=== PATIENT | male | born 1995 | race Caucasian/White ===

== ENCOUNTER → 2018-12-19 13:56 | Outpatient (CLI) | payer OTHER, SELFPAY ==
--- NOTE | 2018-12-19 | DI.MRI.S_ITS ---
PROCEDURE: MR CERVICAL SPINE WO CON INDICATIONS: Cervicalgia TECHNIQUE: Noncontrast sagittal T1 spin echo and T2 fast spin echo, sagittal STIR, foraminal oblique sagittal T2 fast spin echo, and axial gradient echo or T2 fast spin echo through the cervical spine. COMPARISON: None. FINDINGS: Image quality: Excellent. Alignment and Curvature: There is normal bony alignment. Bone Marrow: Marrow demonstrates normal overall signal. Spinal Cord: Visualized spinal cord has normal size and signal. No cerebellar tonsillar herniation. Paraspinous Soft Tissues: No paravertebral masses. Prevertebral soft tissues are normal in thickness. C2-C3: Normal appearance. C3-C4: Normal appearance. C4-C5: The disc height and disc signal are well-preserved. There is mild right-sided and no significant left-sided neural foraminal narrowing seen. The central canal is widely patent. C5-C6: The disc height and disc signal are relatively well-preserved. There is mild left-sided and minimal right-sided neural foraminal narrowing seen. The central canal is widely patent. C6-C7: The disc height is well-preserved. A mild degree of generalized disc osteophyte complex is seen. Minimal to mild bilateral neural foraminal narrowing is seen. The central canal is widely patent. C7-T1: Normal appearance. IMPRESSION: Mild lower cervical spine degenerative changes are seen. Dictated by: Drake Caballero M.D. on 12/19/2018 at 15:48 Approved by: Drake Caballero M.D. on 12/19/2018 at 15:50
== END ==
PROVIDERS: PCP Family Medicine; Visit Provider Physical Medicine & Rehabilitation Pain Medicine
DX: M54.2 Cervicalgia (principal); M47.812 Spondylosis without myelopathy or radiculopathy, cervical region
CPT/HCPCS: 72141

== ENCOUNTER 2021-01-30 21:03 | Emergency (ER) | payer OTHER, SELFPAY ==
[2021-01-30 21:22] VITALS: BP 134/74; PULSE 87; RESP 15; TEMP 37.2; O2SAT 98; BMI 29.5
--- NOTE | 2021-01-30 23:41 | PC.NURSE ---
2200: Pt out of room, instructed to put on mask. Asking to have a suture kit provided to him so he can take it home and suture himself. Advised we will not be able to provide that. Asking multiple nurses if he can buy a suture kit from us. Dr Lim made aware and pt made aware of the wait. bleeding controlled and wrapped in coban at this time. Tetanus is not up to date but pt refusing updated vaccination.
[2021-01-31] MEDS: LIDO 1%/SOD BICARB 8.4% (10ML) 10 ML SYRINGE INJ (00:08)
[2021-01-31] MEDS: BACITRACIN OINT 0.9 GM PCKT 1 APPLIC TOP (00:08)
--- NOTE | 2021-01-31 00:14 | ED_ITS ---
HPI - Wound/Laceration General Chief Complaint: Wound/Laceration Stated Complaint: RT HAND INSIDE THUMB AND INDEX FINGER CUT Time Seen by Provider: 01/30/21 23:41 Source: patient Mode of arrival: Ambulatory Limitations: no limitations History of Present Illness HPI narrative: Otherwise healthy 25-year-old gentleman who cut the web aside of his right thumb with a sharp knife used for tanning sheepskin. He cleaned the wound well prior to arrival but it is going to need sutures. He is neurovascularly intact with full strength to his thumb and no evidence of tendon involvement. Related Data Previous Rx's Medication Instructions Recorded cephalexin 500 mg capsule 500 mg PO TID #15 cap 01/31/21 Allergies Allergy/AdvReac Type Severity Reaction Status Date / Time BEESTING Allergy Unknown INFLAMMATIO Uncoded 06/19/17 12:35 N Review of Systems Review of Systems Narrative: Pertinent positive and negative findings as per HPI Remainder of review of systems is otherwise unremarkable for Constitutional: Fevers, chills, weakness ENT: No sore throat, neck pain, ear pain CV: Chest pain, palpitations, Respiratory: Cough, wheeze, dyspnea GI: Nausea, vomiting, diarrhea, Patient History Social History Smoking Status: Never smoker Smoking Status: Never smoker alcohol intake frequency: 0-2 drinks per day Substance Use Type: does not use Exam Narrative Exam Narrative: General: Alert appropriate in no acute distress Respiratory: Able to speak in full sentences, no obvious respiratory distress Skin: No obvious rashes, warm and dry Neurologic: Grossly intact no obvious asymmetries or abnormalities Psych: appropriate insight and affect, cooperative Extremity: 6 cm full-thickness laceration to the web surface of his right thumb. No tendon involvement bleeding is well controlled. No muscle involvement. Initial Vital Signs Initial Vital Signs: Vital Signs Temperature 99 F 01/30/21 21: Pulse Rate 87 01/30/21 21:22 Respiratory Rate 15 01/30/21 21:22 Blood Pressure 134/74 01/30/21 21:22 Pulse Oximetry 98 01/30/21 21:22 Procedures Laceration Repair Right thumb laceration: Time of procedure: 05:09 Site: hand Side (If applicable): right Size (cm): 6 Description: linear Depth: simple, single layer Local Anesthetic: lidocaine 1% and with bicarb Amount of anesthesia used (mL): 6 Pre-repair: wound explored, irrigated extensively and deep structures intact Skin layer closed with: nylon Size (cm): 6-0 Number of sutures: 6 Technique: simple, interrupted Course Orders Ordered: Discontinued Medications Bacitracin (Bacitracin Oint 0.9 Gm Pckt) 1 applic TOP NOW ONE Stop: 01/30/21 23:45 Last Admin: 01/31/21 00:08 Dose: 1 applic Documented by: JOSEFINA Lidocaine/Sodium Bicarbonate (Lido 1%/Sod Bicarb 8.4% (10ml) 10 Ml Syringe) 10 ml INJ NOW ONE Stop: 01/30/21 23:45 Last Admin: 01/31/21 00:08 Dose: 10 ml Documented by: JOSEFINA Vital Signs Vital signs: Vital Signs - 8 hr 01/30/21 21:22 Temperature 99 F Pulse Rate 87 Respiratory Rate 15 Blood Pressure 134/74 Pulse Oximetry 98 MDM - Wound/Laceration MDM Narrative Medical decision making narrative: 25-year-old gentleman with a laceration to the web space right thumb. Started on Keflex for infection prevention. Reviewed signs and symptoms of deeper space infections and complications that might be seen with hand wounds. Questions are answered and he is safe for home discharge Discharge Plan Departure Patient Disposition: Home Clinical Impression: Laceration Instructions: DI for Laceration Repair Activity Restrictions/Additional Instructions: Thank you for coming in today It does not look like you cut through any tendons. The wound itself is going to take a couple extra days to heal because it is right at the crease of your t humb. I would recommend that the stitches come out on or about February 09. Because it is your hand I am also going to suggest that you complete 5 days of antibiotics to prevent an infection. If you notice any signs of increasing redness or pain you need to be seen again in the emergency department I hope you heal quickly Prescriptions: New cephalexin 500 mg capsule 500 mg PO TID Qty: 15 0RF Referrals: Jennifer De La Cruz [Primary Care Provider] -
== END 2021-01-31 00:29 | disposition home or self-care (01) ==
PROVIDERS: Emergency Provider Emergency Medicine; PCP Family Medicine
DX: S61.411A Laceration without foreign body of right hand, initial encounter (principal); W26.0XXA Contact with knife, initial encounter
CPT/HCPCS: 12002; 99282; 99283

== ENCOUNTER 2023-04-22 15:15 | Emergency (ER) | payer OTHER, SELFPAY ==
[2023-04-22 15:40] VITALS: BP 178/100; PULSE 94; RESP 16; TEMP 37.3; O2SAT 98; BMI 34.0
== END 2023-04-22 17:27 | disposition left against medical advice (07) ==
PROVIDERS: Emergency Provider Emergency Medicine; PCP Family Medicine
DX: S69.91XA Unspecified injury of right wrist, hand and finger(s), initial encounter (principal)
CPT/HCPCS: 99281

== ENCOUNTER → 2023-10-19 10:22 | Outpatient (CLI) | payer OTHER, SELFPAY ==
[2023-10-19 10:46] LABS: Add Manual Diff / Slide Review NO; Basophils Absolute Auto 0 /uL (0-100); Basophils Percent Auto 0.5 % (0-2); Eosinophils Absolute Auto 300 /uL (0-450); Eosinophils Percent Auto 4.9 % (2-4); Hematocrit 44.3 % (41-53); Hemoglobin 15.2 g/dL (13.5-17.5); Lymphocytes Absolute Auto 1800 /uL (1100-4500); Lymphocytes Percent Auto 31.6 % (25-40); Mean Corpuscular HGB Conc 34.4 % (30-36); Mean Corpuscular Hemoglobin 28.3 PG (26-34); Mean Corpuscular Volume 82.4 fL (80-100); Monocytes Absolute Auto 600 /uL (0-900); Monocytes Percent Auto 9.6 % (3-14); Neutrophils Absolute Auto 3100 /uL (1500-7000); Neutrophils Percent Auto 53.4 % (50-75); Platelet Count 273 X10^3/uL (150-400); Red Blood Cell Count 5.37 X10^6/uL (4.5-5.9); Red Cell Distribution Width 13.4 % (11.6-14.8); White Blood Cell Count 5.8 X10^3/uL (4.5-11.0)
[2023-10-19 10:58] LABS: Hemoglobin A1C% w Est Avg Glu 5.2 % (4.0-6.0)
[2023-10-19 11:32] LABS: HEMOLYSIS < 15 (0-50); Iron 110 ug/dL (49-181)
[2023-10-19 11:39] LABS: Alanine Aminotransferase 53 IU/L (<50); Albumin 4.5 g/dL (3.5-5.0); Albumin Globulin Ratio 1.5 (1.0-2.8); Alkaline Phosphatase 73 U/L (38-126); Aspartate Aminotransferase 72 IU/L (17-59); BUN Creatinine Ratio 13.8 (6-22); Bilirubin Total 0.8 mg/dL (0.2-1.3); Blood Urea Nitrogen 15 mg/dL (9-20); C-Reactive Protein Quant < 0.5 mg/dL (<1.0); Calcium 9.5 mg/dL (8.4-10.2); Carbon Dioxide 30 mmol/L (22-32); Chloride 104 mmol/L (98-107); Estimated Glomerular Filt Rate > 60 mL/min (>60); Glucose 106 mg/dL (70-100); HEMOLYSIS < 15 (0-50); Potassium 4.5 mmol/L (3.4-5.1); Sodium 140 mmol/L (137-145); Total Protein 7.5 g/dL (6.3-8.2)
[2023-10-19 11:41] LABS: Erythrocyte Sedimentation Rate 3 MM/HR (0-15)
[2023-10-19 11:44] LABS: Percent Iron Saturation 35 % (20-50); Total Iron Binding Capacity 311 ug/dL (261-462); Transferrin 260 mg/dL (206-381)
[2023-10-19 12:07] LABS: TSH w/ Reflex to FT4 1.42 uIU/mL (0.47-4.68)
[2023-10-19 12:09] LABS: Ferritin 73 ng/mL (18-464)
[2023-10-19 12:24] LABS: Vitamin B12 Reflex MMA if <400 425 pg/mL (239-931)
== END ==
PROVIDERS: PCP Family Medicine; Referring Provider Family Medicine; Visit Provider Family Medicine
DX: R25.1 Tremor, unspecified (principal); R53.83 Other fatigue; R63.5 Abnormal weight gain
CPT/HCPCS: 36415; 80053; 82607; 82728; 83036; 83540; 83550; 84443; 85025; 85651; 86140

== ENCOUNTER → 2024-01-29 19:35 | Outpatient (CLI) | payer OTHER, SELFPAY ==
--- NOTE | 2024-01-29 19:37 | DI.MRI.S_ITS ---
PROCEDURE: MR HEAD/BRAIN WO CON INDICATIONS: facial numbness, weakness, concern for stroke a few days ago TECHNIQUE: Noncontrast axial T1 spin echo, axial T2 fast spin echo, sagittal and axial FLAIR, coronal T2 fast spin echo, axial gradient echo, axial diffusion and ADC through the brain. COMPARISON: None. FINDINGS: Image quality: Excellent. CSF Spaces: Basal cisterns are patent. No extra-axial fluid collections. Ventricles are normal in size and shape. Brain: No intracranial masses or hemorrhage. Clay/white matter interface is normal. Brainstem appears normal. Diffusion-weighted images demonstrate no acute infarct. No chronic ischemic insults. Normal intravascular flow voids are present. Skull and face: Calvarium has normal marrow signal. Orbits appear normal. Sinuses: Mucosal thickening and subtotal opacification of the left sphenoid sinus. Trace mucosal thickening at the base of the maxillary sinuses. Frontal sinuses are hypoplastic and non aerated. Mastoid cavities are normally aerated. IMPRESSION: No MR evidence of acute or subacute ischemia. Sinus disease, worst in the left sphenoid sinus. Dictated by: Micki Sahu M.D. on 01/29/2024 at 20:36 Approved by: Micki Sahu M.D. on 01/29/2024 at 20:40
== END ==
LOC: MRI 19:36
PROVIDERS: PCP Family Medicine; Referring Provider Family Medicine; Visit Provider Family Medicine
DX: J32.3 Chronic sphenoidal sinusitis (principal); R29.90 Unspecified symptoms and signs involving the nervous system
CPT/HCPCS: 70551